=== PATIENT | female | born 1960 | race Asian ===

== ENCOUNTER 2019-01-10 08:38 | Emergency (ER) | payer OTHER ==
[~2019-01-10] VITALS: Ht 162.6 cm; Wt 68.0 kg
[2019-01-10 09:10] VITALS: BP 140/87
[2019-01-10] MEDS ORDERED: CLON0.5T11 PO (09:12)
--- NOTE | 2019-01-10 09:12 | PHYS DOC ---
Past History Past Medical History: No Pertinent History Past Surgical History: No Surgical History Smoking: Non-smoker Alcohol Use: None Drug Use: None Adult General Chief Complaint Chief Complaint: HYPERVENTILATION HPI HPI Patient is a 58-year-old female presents with hyperventilation and anxiety. This is been going on intermittently for approximately the past 1-2 weeks after being told that her job performance needs to change. 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 She has been working here for approximately the past 4 years. She has been told that she needs to decrease the amount of time and attention she pays to her duties by her [employer] and [employer] supervisor. This is caused stress at home. Patient denies any suicidal or homicidal ideation. Denies any hallucinations. Nothing seems to make the symptoms better or worse.[] Review of Systems Review of Systems Constitutional: Denies fever or chills [] Eyes: Denies change in visual acuity, redness, or eye pain [] HENT: Denies nasal congestion or sore throat [] Respiratory: Denies cough or shortness of breath [] Cardiovascular: No chest pain or palpitations[] GI: Denies abdominal pain, nausea, vomiting, bloody stools or diarrhea [] : Denies dysuria or hematuria [] Musculoskeletal: Denies back pain or joint pain [] Integument: Denies rash or skin lesions [] Neurologic: Denies headache, focal weakness or sensory changes [] Endocrine: Denies polyuria or polydipsia [] All other systems were reviewed and found to be within normal limits, except as documented in this note. Physical Exam Physical Exam Constitutional: Well developed, well nourished, no acute distress, non-toxic appearance. [] HENT: Normocephalic, atraumatic, bilateral external ears normal, oropharynx moist, no oral exudates, nose normal. [] Eyes: PERRLA, EOMI, conjunctiva normal, no discharge. [] Neck: Normal range of motion, no tenderness, supple, no stridor. [] Cardiovascular:Heart rate regular rhythm, no murmur [] Lungs & Thorax: Bilateral breath sounds clear to auscultation [] Abdomen: Not examined[] Skin: Warm, dry, no erythema, no rash. [] Back: No tenderness, no CVA tenderness. [] Extremities: No tenderness, no cyanosis, no clubbing, ROM intact, no edema. [] Neurologic: Alert and oriented X 3, normal motor function, normal sensory function, no focal deficits noted. [] Psychologic: Affect depressed/tearful, judgement normal, mood depressed, no suicidal or homicidal ideation.. [] EKG EKG [] Radiology/Procedures Radiology/Procedures [] Course & Med Decision Making Course & Med Decision Making Pertinent Labs and Imaging studies reviewed. (See chart for details) Medical decision making: Patient appears to have an adjustment disorder based on changing criteria for her work. There is no suicidal or homicidal ideation. No hallucination. No evidence of need for further mental health evaluation at this point. ED course: Patient arrived, was placed in bed, and tolerated exam well. Findings were discussed with the patient who voiced understanding. All questions were answered. She was discharged in improved condition.[] Dragon Disclaimer Dragon Disclaimer This electronic medical record was generated, in whole or in part, using a voice recognition dictation system. Departure Departure: Impression: Primary Impression: Adjustment disorder Disposition: HOME, SELF-CARE Condition: IMPROVED Patient Instructions: Adjustment Disorder Additional Instructions: Follow-up with your regular doctor in 2 days. If you do not have regular doctor list of local clinics will be provided for you. Return to the ER if thinking about hurting yourself, thinking about hurting anyone else, or any other concerns. Scripts Clonazepam (CLONAZEPAM) 0.5 Mg Tablet 1 TAB PO BID for anxiety, #6020 TAB 0 Refills Prov: ADDIS JOSEPH DO 01/10/19 Problem Qualifiers Primary Impression: Adjustment disorder Adjustment disorder type: with mixed anxiety and depressed mood Qualified Codes: F43.23 - Adjustment disorder with mixed anxiety and depressed mood ADDIS JOSEPH DO Jan 10, 2019 09:12
== END 2019-01-10 09:23 | disposition home or self-care (01) ==
LOC: ER 08:38
DX: F43.23 Adjustment disorder with mixed anxiety and depressed mood (principal)
CPT/HCPCS: 99283; 99284

== ENCOUNTER → 2021-02-15 | Outpatient (CLI) | payer OTHER ==
[~2021-02-15] MED LIST: CLON0.5T4 PO
[2021-02-15 09:27] LABS: ALBUMIN 3.9 g/dL (3.4-5.0); ALBUMIN/GLOBULIN RATIO 1.2 (1.0-1.7); CREATININE 0.5 mg/dL (0.6-1.0); GFR 125.9; POTASSIUM 4.3 mmol/L (3.5-5.1); TOTAL BILIRUBIN 0.6 mg/dL (0.2-1.0); TOTAL PROTEIN 7.2 g/dL (6.4-8.2)
[2021-02-16 01:11] LABS: HEMOGLOBIN A1C 6.9 % (4.8-5.6)
== END ==
LOC: LAB 07:16
PROVIDERS: ATTEND Physician Assistant
DX: R73.09 Other abnormal glucose (principal); E78.1 Pure hyperglyceridemia
CPT/HCPCS: 36415; 80053; 83036

== ENCOUNTER 2021-03-17 08:21 | Emergency (ER) | payer OTHER ==
[~2021-03-17] VITALS: Ht 162.6 cm; Wt 72.0 kg
[2021-03-17 08:45] VITALS: BP 144/87
[2021-03-17] MEDS ORDERED: HYDROcodone/APAP 5/325MG 1 TAB TABLET PO ONE (09:00)
--- NOTE | 2021-03-17 09:55 | RAD ---
EXAM: Right shoulder, 3 views. HISTORY: Pain. COMPARISON: None. FINDINGS: 3 views of the right shoulder obtained. There is no fracture, dislocation or subluxation. IMPRESSION: No acute osseous finding. Electronically signed by: Catherine Dsouza MD (03/17/2021 9:53 AM) [id number]
--- NOTE | 2021-03-17 09:57 | RAD ---
EXAM: Cervical spine CT without contrast. HISTORY: Neck pain. TECHNIQUE: Computed tomographic images of the cervical spine were obtained without contrast. Multipla taylor reformatting was performed. *One or more of the following individualized dose reduction techniques were utilized for this examina tion: 1. Automated exposure control. 2. Adjustment of the mA and/or kV according to patient size. 3. Use of iterative reconstruction technique. COMPARISON: None. FINDINGS: There is no listhesis. The vertebral bodies are normal in height. There is multilevel endpl ate remodeling, primarily at C6-C7. There is no suspicious osseous lesion. There is no fracture. The skull base and posterior fossa are unremarkable. There is a diffusely heterogeneous thyroid. There is a small left thyroid calcification. The lung apices are unremarkable. At C2-C3, there is no stenosis. At C3-C4, there is no stenosis. At C4-C5, there is a minimal shallow right paracentral disc protrusion. There is no stenosis. At C5-C6, there is no stenosis. At C6-C7, there is a disc bulge and endplate remodeling. There is no stenosis. IMPRESSION: 1. Mild degenerative change involving the cervical spine, primarily at C6-C7. There is no significant stenosis. 2. Heterogeneous thyroid. This can be better assessed with a thyroid sonogram. Electronically signed by: Catherine Dsouza MD (03/17/2021 9:55 AM) [id number]
[2021-03-17] MEDS ORDERED: LIDO700A21 TP (10:04)
--- NOTE | 2021-03-17 10:05 | PHYS DOC ---
Past History Past Medical History: No Pertinent History Past Surgical History: No Surgical History Smoking: Non-smoker Alcohol Use: None Drug Use: None General Adult EDM: Chief Complaint: SHOULDER INJURY HPI: HPI: 60-year-old female past medical history significant for known rotator cuff tear, diagnosed 4 days ago (w/surgery, Dr. Nathan, beginning of February s/p MRI), presents to the ED with complaints of exacerbation of her right shoulder pain. Reports entire right shoulder hurts. Has shooting pain from the right lateral neck, down the arm, with tingling of the fingers. Denies any blunt injury to the shoulder or neck. Is right hand dominant. Dr. Nathan recommended PT, analgesia and conservative measures. 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 Review of Systems: Review of Systems: Constitutional: Denies fever or chills Eyes: Denies change in visual acuity HENT: Denies nasal congestion or sore throat Respiratory: Denies cough or shortness of breath Cardiovascular: Denies chest pain or edema GI: Denies nausea or vomiting : Denies dysuria or hematuria Musculoskeletal: Denies back pain or joint swelling Integument: Denies rash or diaphoresis Neurologic: Denies headache, midline neck pain or weakness Psychiatric: Denies depression or anxiety Current Medications: Current Meds: Current Medications Medications (Trade) Dose Ordered Sig/Santy Start Time Stop Time Status Last Admin Dose Admin Acetaminophen/ Hydrocodone Bitart (Lortab 5/325) 1 tab 1X ONCE 03/17/21 09:00 03/17/21 09:22 DC 03/17/21 09:15 1 TAB Allergies: Allergies: Allergies Coded Allergies Type Severity Reaction Last Updated Verified No Known Drug Allergies 01/10/19 No Physical Exam: PE: Constitutional: Well developed, well nourished, no acute distress, non-toxic appearance. HENT: Normocephalic, atraumatic, Eyes: EOMI, conjunctiva normal, no discharge. Neck: Normal range of motion, supple, no midline neck pain Cardiovascular: S1/2 present, regular rhythm Lungs & Thorax: Speaking in full sentences, bilateral equal chest rise, no tachypnea or increased work of breathing Skin: Warm, dry, no erythema, no rash. [] Extremities: No tenderness, no cyanosis, equal radial pulses, painful right shoulder range of motion, range of motion is intact, no joint swelling or increased warmth Neurologic: Alert and oriented X 3, normal motor function, normal sensory function, no focal deficits noted. [] Psychologic: Affect normal, judgement normal, mood normal. [] Current Patient Data: Vital Signs: Vital Signs Date Time Temp Pulse Resp B/P (MAP) Pulse Ox O2 Delivery O2 Flow Rate FiO2 03/17/21 09:15 14 97 03/17/21 08:45 98.7 70 144/87 (106) EKG: EKG: [] Radiology/Procedures: Radiology/Procedures: IMAGING REPORT Signed PATIENT: CASSANDRA VARGHESE ACCOUNT: [id number] : 1960 LOCATION: ER AGE: 60 SEX: F EXAM STATUS: REG ER ORD. PHYSICIAN: MARIELLE PARK DO REASON: right sided neck pasin and neuropathy PROCEDURE: CT CERVICAL SPINE WO CONTRAST EXAM: Cervical spine CT without contrast. HISTORY: Neck pain. TECHNIQUE: Computed tomographic images of the cervical spine were obtained w ithout contrast. Multiplanar reformatting was performed. *One or more of the following individualized dose reduction techniques were utilized for this examination: 1. Automated exposure control. 2. Adjustment of the mA and/or kV according to patient size. 3. Use of iterative reconstruction technique. COMPARISON: None. FINDINGS: There is no listhesis. The vertebral bodies are normal in height. There is multilevel endplate remodeling, primarily at C6-C7. There is no suspicious osseous lesion. There is no fracture. The skull base and posterior fossa are unremarkable. There is a diffusely heterogeneous thyroid. There is a small left thyroid calcification. The lung apices are unremarkable. At C2-C3, there is no stenosis. At C3-C4, there is no stenosis. At C4-C5, there is a minimal shallow right paracentral disc protrusion. There is no stenosis. At C5-C6, there is no stenosis. At C6-C7, there is a disc bulge and endplate remodeling. There is no stenosis. IMPRESSION: 1. Mild degenerative change involving the cervical spine, primarily at C6-C7. There is no significant stenosis. 2. Heterogeneous thyroid. This can be better assessed with a thyroid sonogram. Electronically signed by: Catherine Larose MD (03/17/2021 9:55 AM) [id number] DICTATED AND SIGNED BY: CATHERINE LAROSE MD DATE: 03/17/21952 CC: MARIELLE SAUER; MARIELLE PARK DO ~MTH0 0 IMAGING REPORT Signed PATIENT: CASSANDRA VARGHESE ACCOUNT: [id number] : 1960 LOCATION: ER AGE: 60 SEX: F EXAM STATUS: REG ER ORD. PHYSICIAN: MARIELLE PARK DO REASON: shoulder pain h/o rotator cuff tear PROCEDURE: SHOULDER 2+V RIGHT EXAM: Right shoulder, 3 views. HISTORY: Pain. COMPARISON: None. FINDINGS: 3 views of the right shoulder obtained. There is no fracture, dislocation or subluxation. IMPRESSION: No acute osseous finding. Electronically signed by: Catherine Larose MD (03/17/2021 9:53 AM) [id number] DICTATED AND SIGNED BY: CATHERINE LAROSE MD DATE: 03/17/21951 CC: MARIELLE SAUER; MARIELLE PARK DO ~MTH0 0 Heart Score: C/O Chest Pain: No Risk Factors: Risk Factors: DM, Current or recent (<one month) smoker, HTN, HLP, family history of CAD, obesity. Risk Scores: Score 0 - 3: 2.5% MACE over next 6 weeks - Discharge Home Score 4 - 6: 20.3% MACE over next 6 weeks - Admit for Clinical Observation Score 7 - 10: 72.7% MACE over next 6 weeks - Early Invasive Strategies Course & Med Decision Making: Course & Med Decision Making Pertinent Labs and Imaging studies reviewed. (See chart for details) Concern for exacerbation of chronic shoulder pain/rotator cuff injury, no new trauma, unremarkable x-ray. CT of the cervical spine shows osteoarthritis and heterogenous thyroid. I spoke to patient regarding [id number] with primary care physician, consider thyroid imaging. Shoulder sling given. Will discharge home with strict ED return precautions were given for repeat injury, joint swelling/warmth/rash or neurologic deficits. Encouraged urgent outpatient follow-up with PMD and Ortho or neurosurgery for definitive management. Life- threatening processes were considered but are low suspicion at this time, given history, physical exam and ED workup. Pt was educated on all prescription medications and adverse effects. All patient's questions were answered and pt was stable at time of discharge. Life/limb-threatening differential includes but is not limited to, trauma (fracture, dislocation, laceration, compartment syndrome, tendon or ligament injury), neurovascular injury or deficitcva/tia, infection (osteomyelitis, abscess, cellulitis, septic arthritis, necrotizing fasciitis), deep vein thrombosis, renal/cardiac/liver disease, medication adverse effect, lymphedema/anasarca, vascular insufficiency or malignancy, I have spoken with the patient and/or caregivers. I explained the patient's condition, diagnoses and treatment plan based on the information available to me at this time. I have answered the patient and/or caregiver's questions and addressed any concerns. The patient and/or caregivers have a good understanding of patient's diagnosis, condition and treatment plan as can be expected at this point. Vital signs have been stable. Patient's condition is stable and appropriate for discharge from the emergency department. Patient will pursue further outpatient evaluation with primary care physician or other designated or consulting physician as outlined in the discharge instructions. The patient and/or caregivers are agreeable to this plan of care and follow-up instructions have been explained in detail. The patient and/or caregivers have received these instructions in written form and have expressed an understanding of the discharge instructions. The patient and/or caregivers are aware that any significant change of condition or worsening of symptoms should prompt immediate return to this or the closest emergency department or call to 911. Nery Disclaimer: Nery Disclaimer: This electronic medical record was generated, in whole or in part, using a voice recognition dictation system. Departure Departure: Impression: Primary Impression: Right shoulder pain Additional Impression: Dysfunction of right rotator cuff Disposition: HOME / SELF CARE / HOMELESS Condition: STABLE Referrals: MARIELLE SAUER (PCP) Follow [facility] with your p[facility] [phone] OR [facility] Valdez [phone] Patient Instructions: Rotator Cuff Injury, Rotator Cuff Tear, Surgery for, with Rehab-SportsMed Additional Instructions: FOLLOW UP WITH ORTHOPEDICS: [facility] [address] [facility], [address] [address] OR FOLLOW UP WITH NEUROSURGERY: FOR DEFINITIVE MANAGEMENT OF BACK PAIN Neurological [facility] [address] [place] [address] EMERGENCY DEPARTMENT GENERAL DISCHARGE INSTRUCTIONS Thank you for coming to [facility] (ED) today and trusting us with you care. We trust that you had a positivie experience in our Emergency Department. If you wish to speak to the department management, you may call the director at [phone]. YOUR FOLLOW UP INSTRUCTIONS ARE FOLLOWS: 1. Do you have a private Doctor? If you do not have a private doctor, please ask for a resource list of physicians or clinics that may be able to assist you with follow up care. 2. The Emergency Physician has interpreted your x-rays. The X-Ray specialist will also review them. If there is a change in the findings, you will be notified in 48 hours when at all possible. 3. A lab test or culture has been done, your results will be reviewed and you will be notified if you need a change in treatment. ADDITIONAL INSTRUCTIONS AND INFORMATION: 1. Your care today has been supervised by a physician who is specially trained in emergency care. Many problems require more than one evaluation for a complete diagnosis and treatment. We recommend that you schedule your follow up appointment as recomm ended to ensure complete treatment of you illness or injury. If you are unable to obtain follow up care and continue to have a problem, or if your condition worsens, we recommend that you return to the ED. 2. We are not able to safely determine your condition over the phone nor are we able to give sound medical advice over the phone. For these safety reasons, if you call for medical advice we will ask you to come to the ED for further evaluation. 3. If you have any questions regarding these discharge instructions please call the ED at [phone]. SAFETY INFORMATION: In the interest of safety, wellness, and injury prevention; we encourage you to wear your sealbelt, if you smoke; quite smoking, and we encourage family to use a protective helmet for bicycling and other sporting events that present an increased risk for head injury. IF YOUR SYMPTOMS WORSEN OR NEW SYMPTOMS DEVELOP, OR YOU HAVE CONCERNS ABOUT YOUR CONDITION; OR IF YOUR CONDITION WORSENS WHILE YOU ARE WAITING FOR YOUR FOLLOW UP APPOINTMENT; EITHER CONTACT YOUR PRIMARY CARE DOCTOR, THE PHYSICIAN WHOSE NAME AND NUMBER YOU WERE GIVEN, OR RETURN TO THE ED IMMEDIATELY. Scripts Lidocaine (Lidocaine PATCH ) 1 Each Adh..patch 1 EACH TP DAILY for FOR LOCAL PAIN for 5 Days, #5 PATCH REMOVE AFTER 12 HOURS Prov: MARIELLE PARK DO 03/17/21 MARIELLE PARK DO Mar 17, 2021 10:05
== END 2021-03-17 10:15 | disposition home or self-care (01) ==
LOC: ER 08:21
DX: M75.101 Unspecified rotator cuff tear or rupture of right shoulder, not specified as traumatic (principal)
CPT/HCPCS: 72125; 73030; 99284-25